=== PATIENT | female | born 1975 | race American Indian/Alaskan Native ===

== ENCOUNTER 2016-10-21 20:40 | Observation (INO) | payer MEDICAID ==
[2016-10-21 20:49] VITALS: RESP 16; TEMP 98.3; O2SAT 100
[2016-10-21 22:01] VITALS: BP 114/70; PULSE 73
--- NOTE | 2016-10-21 22:19 | ED PDOC ---
Arrival/HPI - General Chief Complaint: Female Genitourinary Time Seen by Provider: 10/21/16 21:56 Historian: Patient - History of Present Illness Narrative History of Present Illness (Text): 10/21/16 22:16 Patient states that she did a home test yesterday that was positive, presents to the emergency room complaining of a pinkish vaginal discharge with no abdominal pain or vaginal bleeding. Otherwise: (-) N/V, (-) fever, (-) urinary symptoms, (-) prior salpingitis, (-) prior ectopic . Has (-) care and (-) prior OB ultrasound. Past Medical History - Provider Review Nursing Documentation Reviewed: Yes - Cardiac Hx Cardiac Disorders: No - Pulmonary Hx Respiratory Disorders: No - Neurological Hx Neurological Disorder: No - HEENT Hx HEENT Disorder: No - Endocrine/Metabolic Hx Endocrine Disorders: No - Hematological/Oncological Hx Blood Disorders: No - Integumentary Hx Dermatological Disorder: No - Musculoskeletal/Rheumatological Other/Comment: "BAD FEET" - Gastrointestinal Hx Gastrointestinal Disorders: No - Genitourinary/Gynecological Hx Genitourinary Disorders: No - Psychiatric Hx Depression: Yes Hx Substance Use: No - Surgical History Hx Section: Yes Hx Orthopedic Surgery: Yes (FOOT) Family/Social History - Physician Review Nursing Documentation Reviewed: Yes Family/Social History: No Known Family HX Smoking Status: Light Smoker < 10 Cigarettes Daily Hx Alcohol Use: Yes Frequency of alcohol use: Socially Hx Substance Use: No Allergies/Home Meds Allergies/Adverse Reactions: Allergies No Known Allergies Allergy (Verified 10/21/16 20:43) Review of Systems - Review of Systems Constitutional: Normal. absent: Fatigue, Weight Change, Fevers Respiratory: Normal. absent: SOB, Cough, Sputum Cardiovascular: Normal. absent: Chest Pain, Palpitations, Edema Gastrointestinal: Normal. absent: Abdominal Pain, Stool Changes Genitourinary Female: Normal, Vaginal Discharge. absent: Dysuria, Frequency, Hematuria Musculoskeletal: Normal. absent: Arthralgias, Back Pain, Neck Pain Skin: Normal. absent: Rash, Pruritis, Skin Lesions Physical Exam - Physical Exam Narrative Physical Exam (Text): 10/21/16 22:18 GENERAL APPEARANCE: Patient is awake, alert, oriented x 3, in no acute distress. SKIN: Warm, dry; (-) cyanosis. EYES: (-) conjunctival pallor. ENMT: Mucous membranes moist. NECK: (-) tenderness, (-) stiffness, (-) lymphadenopathy. CHEST AND RESPIRATORY: (-) rales, (-) rhonchi, (-) wheezes; breath sounds equal bilaterally. HEART AND CARDIOVASCULAR: (-) irregularity; (-) murmur, (-) gallop. ABDOMEN AND GI: Soft; (-) tenderness. EXTREMITIES: (-) deformity. NEURO AND PSYCH: Mental status as above; (-) focal findings. Vital Signs Temp Pulse Resp BP Pulse Ox 10/21/16 22:00 73 16 114/70 100 10/21/16 20:49 98.3 F 71 16 104/73 100 10/21/16 20:44 98.3 F 71 16 104/73 100 Medical Decision Making ED Course and Treatment: 10/21/16 22:18 41 yo F states that she did a HPT yesterday was (+), here today for pinkish vaginal discharge. Plan: -- Labs -- Urinalysis -- Reassess and disposition -- TV US - Lab Interpretations I have reviewed the lab results: Yes (patient noted to have UTI, Beta quant 5, 808) - RAD Interpretation Narrative RAD Interpretations (Text): 10/22/16 00:42 TV US: FINDINGS: Gestation: No intrauterine gestational sac. Uterus/cervix: 1.0 x 1.2 x 1.3 cm anterior uterine mass. Endometrium: 1.0 cm in thickness. Closed cervix. Ovaries: Normal ovaries. No adnexal masses. Free fluid: Small free fluid within pelvis. IMPRESSION: 1. No intrauterine gestation. DDX: Early IUP, missed , ectopic . 2. Probable fibroid. 3. Incidental/non-acute findings are described above. Dictated and Authenticated by: Loki Daniel MD 10/22/2016 12:22 AM Eastern Time ([place] & [place]) Radiology Orders: 10/21/16 22:12 OB TRANSVAGINAL [US] Stat ED OBSERVATION Date of observation admission: 10/21/16 Time of observation admission: 22:20 - Observation admission statement Patient is being placed in observation because:: Due to patient's symptoms and she is . - Goals of Observation Goals of observation are:: To monitor the patient's symptoms. - Progress Note Progress Note: 10/22/16 00:10 Labs reviewed, patient is noted to have a UTI described antibiotic Macrobid. Patient returned from ultrasound without any incident. She continues to deny any abdominal pain or vaginal bleeding at this time. On exam, abdomen remained soft with no tenderness. Results of ultrasound still pending at this time. 10/22/16 00:42 US shows no IUP. Beta quant is 5,808. Results of ultrasound discussed with the patient agreed detail. Based on history, exam and diagnostic results plan will be for outpatient f/u. Patient advised to return to the ER after 2 days for repeat beta quant. Patient states she fully agrees with and understands discharge instructions. States that she agrees with the plan and disposition. Verbalized and repeated discharge instructions and plan. I have given the patient opportunity to ask any additional questions. Advised to take medication as prescribed. Return to the emergency room at any time for any new or worsening symptoms. - PA / PRODUCTION CONSULTANT / Resident Statement / has reviewed & agrees with the documentation as recorded. Disposition/Present on Arrival - Present on Arrival Any Indicators Present on Arrival: No History of DVT/PE: No History of Uncontrolled Diabetes: No Urinary Catheter: No History of Decub. Ulcer: No History Surgical Site Infection Following: None - Disposition Have Diagnosis and Disposition been Completed?: Yes Diagnosis: UTI (urinary tract infection), Threatened miscarriage Disposition: HOME/ ROUTINE Disposition Time: 00:43 Patient Plan: Discharge Patient Problems: Current Active Problems Problem Status Onset UTI (urinary tract infection) Acute Threatened miscarriage Acute Condition: STABLE
[2016-10-21 22:39] LABS: ADD MANUAL DIFF? NO
[2016-10-21 22:56] LABS: URINE APPEARANCE SL CLOUDY (CLEAR); URINE BILIRUBIN NEGATIVE (NEGATIVE); URINE BLOOD LARGE (NEGATIVE); URINE COLOR LIGHT YELLOW (YELLOW); URINE GLUCOSE (UA) NEGATIVE (NEGATIVE); URINE KETONE NEGATIVE (NEGATIVE); URINE LEUKOCYTE ESTERASE NEGATIVE Leu/uL (NEGATIVE); URINE PROTEIN NEGATIVE mg/dL (<30 mg/dL); URINE UROBILINOGEN 0.2 E.U./dL (<1 E.U./dL)
[2016-10-21 22:57] LABS: ALB/GLOB RATIO 1.3 (1.1-1.8); ALKALINE PHOSPHATASE 49 U/L (38-133); ALT/SGPT 42 U/L (7-56); AST/SGOT 31 U/L (15-39); BILIRUBIN,TOTAL 0.2 mg/dL (0.2-1.3); BLOOD UREA NITROGEN 7 mg/dL (7-21); CALCIUM 10.1 mg/dL (8.4-10.5); CARBON DIOXIDE 27 mmol/L (21-33); CHLORIDE 104 mmol/L (98-107); GFR AFRICAN-AMERICAN > 60; GLUCOSE,RANDOM 94 mg/dL (70-110); POTASSIUM 4.1 mmol/L (3.6-5.0); SODIUM 137 mmol/L (132-148)
[2016-10-21 23:03] LABS: BASO # 0.02 K/mm3 (0.0-2.0); BASO % 0.2 % (0.0-3.0); EOS # 0.1 (0.0-0.7); EOS % 1.4 % (1.5-5.0); GRAN # 5.13 (1.4-6.5); GRAN % 55.7 % (50.0-68.0); HEMATOCRIT 33.8 % (36.0-48.0); LYMPH # 3.2 (1.2-3.4); LYMPH % 35.1 % (22.0-35.0); MEAN CELL VOLUME 92.9 fL (80.0-105.0); MEAN CORPUSCULAR HEMOGLOBIN 31.3 pg (25.0-35.0); MEAN CORPUSCULAR HGB CONC 33.7 g/dl (31.0-37.0); MEAN PLATELET VOLUME 9.7 fl (7.0-11.0); MONO # 0.7 (0.1-0.6); MONO % 7.6 % (1.0-6.0); PLATELET COUNT 331 10^3/uL (120.0-450.0); RED CELL DISTRIBUTION WIDTH 12.5 % (11.5-14.5); WHITE BLOOD COUNT 9.2 10^3/ul (4.5-11.0)
[2016-10-21 23:15] LABS: URINE AMORPHOUS SEDIMENT SMALL; URINE BACTERIA MANY (NEG); URINE RBC 0 - 2 /hpf (0-2)
--- NOTE | 2016-10-22 00:22 | US ---
EXAM: US First Trimester, Transabdominal CLINICAL HISTORY: 41 years old, female; Signs and symptoms; Lmp or gestational age (in weeks): 09/20/2016; Other: Spotting; Additional info: Preg, vag bleed TECHNIQUE: Real-time transabdominal obstetrical ultrasound of the maternal pelvis and a first trimester with image documentation. COMPARISON: No relevant prior studies available. FINDINGS: Gestation: No intrauterine gestational sac. Uterus/cervix: 1.0 x 1.2 x 1.3 cm anterior uterine mass. Endometrium: 1.0 cm in thickness. Closed cervix. Ovaries: Normal ovaries. No adnexal masses. Free fluid: Small free fluid within pelvis. IMPRESSION: 1. No intrauterine gestation. DDX: Early IUP, missed , ectopic . 2. Probable fibroid. 3. Incidental/non-acute findings are described above. EXAM: US , Transvaginal CLINICAL HISTORY: 41 years old, female; Signs and symptoms; Lmp or gestational age (in weeks): 09/20/2016; Other: Spotting; Additional info: Preg, vag bleed TECHNIQUE: Real-time transvaginal obstetrical ultrasound of the maternal pelvis and a first trimester with image documentation. Transvaginal imaging was used for better evaluation of the fetus and adnexa. COMPARISON: No relevant prior studies available. FINDINGS: Gestation: No intrauterine gestational sac. Uterus/cervix: 1.0 x 1.2 x 1.3 cm anterior uterine mass. Endometrium: 1.0 cm in thickness. Closed cervix. Ovaries: Normal ovaries. No adnexal masses. Free fluid: Small free fluid within pelvis.
== END 2016-10-22 00:44 | disposition home or self-care (01) ==
LOC: ED 20:40 → MERGE 22:19 → EROBSV 22:19
PROVIDERS: ADMIT Emergency Medicine; ATTEND Emergency Medicine
DX: O20.0 Threatened abortion (principal); O23.40 Unspecified infection of urinary tract in pregnancy, unspecified trimester; Z3A.00 Weeks of gestation of pregnancy not specified
CPT/HCPCS: 76817; 80053; 81001; 84702; 84703; 85025; 86850; 86900; 87086; 99282; G0378

== ENCOUNTER 2016-10-24 08:26 | Emergency (ER) | payer MEDICAID ==
[2016-10-24 08:57] VITALS: BMI 24.3
[2016-10-24 09:29] VITALS: TEMP 98.7; O2SAT 100
--- NOTE | 2016-10-24 09:56 | ED PDOC ---
Arrival/HPI - General Chief Complaint: Female Genitourinary Time Seen by Provider: 10/24/16 09:02 Historian: Patient - History of Present Illness Narrative History of Present Illness (Text): 10/24/16 09:50 41-year-old female presents today for repeat beta HCG. Patient states that she was seen in the emergency room a few days ago and at that time had some pink discharge without pain. Patient states now she has no pain. She denies any discharge. patient denies nausea or vomiting. No diarrhea or constipation. She denies abdominal pain. She denies urinary symptoms. No chest pain or shortness of breath. Patient states she quit smoking and quit drinking as soon as she found out that she was . Past Medical History - Provider Review Nursing Documentation Reviewed: Yes - Travel History Have you recently traveled outside [place] w/in the past 3 mons?: No - Tetanus Immunization Tetanus Immunization: Unknown - Cardiac Hx Cardiac Disorders: No - Pulmonary Hx Respiratory Disorders: No - Neurological Hx Neurological Disorder: No - HEENT Hx HEENT Disorder: No - Endocrine/Metabolic Hx Endocrine Disorders: No - Hematological/Oncological Hx Blood Disorders: No - Integumentary Hx Dermatological Disorder: No - Musculoskeletal/Rheumatological Other/Comment: "BAD FEET" - Gastrointestinal Hx Gastrointestinal Disorders: No - Genitourinary/Gynecological Hx Genitourinary Disorders: No - Psychiatric Hx Depression: Yes Hx Substance Use: No - Surgical History Hx Section: Yes Hx Orthopedic Surgery: Yes (FOOT) Family/Social History - Physician Review Nursing Documentation Reviewed: Yes Family/Social History: Unknown Family HX Smoking Status: Former Smoker (quit when found out she was ) Hx Alcohol Use: No (quit when she found out she was ) Hx Substance Use: No Allergies/Home Meds Allergies/Adverse Reactions: Allergies No Known Allergies Allergy (Verified 10/21/16 20:43) Review of Systems - Review of Systems Constitutional: absent: Fatigue, Fevers Respiratory: absent: SOB, Cough Cardiovascular: absent: Chest Pain, Palpitations Gastrointestinal: absent: Abdominal Pain, Nausea, Vomiting Genitourinary Female: absent: Dysuria, Frequency, Hematuria, Vaginal Bleeding, Vaginal Discharge Musculoskeletal: absent: Arthralgias Skin: absent: Rash, Pruritis Neurological: absent: Headache, Dizziness Psychiatric: absent: Anxiety, Depression Physical Exam Vital Signs Reviewed: Yes Vital Signs Temp Pulse Resp BP Pulse Ox 10/24/16 11:24 74 17 109/64 100 10/24/16 09:28 98.7 F 72 18 92/54 L 100 Temperature: Afebrile Blood Pressure: Normal Pulse: Regular Respiratory Rate: Normal Appearance: Positive for: Well-Appearing, Non-Toxic, Comfortable Pain Distress: None Mental Status: Positive for: Alert and Oriented X 3 - Systems Exam Head: Present: Atraumatic Mouth: Present: Moist Mucous Membranes Neck: Present: Normal Range of Motion Respiratory/Chest: Present: Clear to Auscultation, Good Air Exchange. No: Respiratory Distress, Accessory Muscle Use Cardiovascular: Present: Regular Rate and Rhythm, Normal S1, S2. No: Murmurs Abdomen: No: Tenderness Neurological: Present: GCS=15 Skin: Present: Warm, Dry, Normal Color. No: Rashes Psychiatric: Present: Alert, Oriented x 3 Medical Decision Making ED Course and Treatment: 10/24/16 09:57 Patient is nontoxic appearing in no distress with stable vital signs Presents for repeat beta hCG. Beta-hC,934 A+blood type Patient reassessment: Patient nontoxic well-appearing no distress with stable vital signs. I discussed the results and the patient. I stressed the importance of follow-up with a science analyst in the next 2 days. Patient states she has an appointment scheduled for October 28. I've advised immediately return and symptoms worsen or persist or if new concerning symptoms develop Patient verbalizes understanding of discharge instructions and need for immediate followup. Impression: Positive test Follow-up with her science analyst within the next 2 days Return immediately if symptoms worsen or persist or if new concerning symptoms develop Take vitamins daily - Lab Interpretations Lab Results: Lab Results 10/24/16 10:51: Blood Type A POSITIVE, Antibody Screen Negative, BBK History Checked Patient has bt 10/24/16 09:24: Beta HCG, Quant 18552.00 H Disposition/Present on Arrival - Present on Arrival Any Indicators Present on Arrival: No History of DVT/PE: No History of Uncontrolled Diabetes: No Urinary Catheter: No History of Decub. Ulcer: No History Surgical Site Infection Following: None - Disposition Have Diagnosis and Disposition been Completed?: Yes Diagnosis: Positive test Disposition: HOME/ ROUTINE Disposition Time: 11:38 Patient Plan: Discharge Patient Problems: Current Active Problems Problem Status Onset Positive test Acute Condition: GOOD Additional Instructions: Follow-up with the science analyst within the next 2 days Return immediately if symptoms worsen or persist or if new concerning symptoms develop Take vitamins daily continue antibiotics for Urinary tract infection Prescriptions: Multivit/Folic Acid/I [ Plus] 1 tab PO DAILY #30 tab Referrals: Olvin Duran [Medical Doctor] - Follow up with primary
[2016-10-24 11:24] VITALS: BP 109/64; PULSE 74; RESP 17
== END 2016-10-24 11:54 | disposition home or self-care (01) ==
LOC: ED 08:26
DX: Z32.01 Encounter for pregnancy test, result positive (principal)